=== PATIENT | female | born 1955 | race Two or more races ===

== ENCOUNTER 2018-09-17 22:03 | Emergency (ER) | payer BC ==
[~2018-09-17] VITALS: Ht 165.1 cm; Wt 69.4 kg
[2018-09-17] MEDS ORDERED: NKM (22:16)
--- NOTE | 2018-09-17 22:29 | NUR ---
ED Nurse Note: pt walked in c/o chest pain started today during dinner radiating to left arm, pt states it feels like electricity running through her arm. pt states she recently had stroke 6 wks ago but didn't go to hospital and had heart attack last year. pt AA&ox4, gcs=15, skin warm and dry, resp even and unlabored on RA, -n/v/d, ambulates w/ steady gait, NSR on manager balance, VSS. will cont monitor. ERMD at the bedside.
[2018-09-17 22:34] VITALS: BP 123/63
[2018-09-17 23:13] LABS: BASOPHILS % (AUTO) 0.8 % (0.0-2.0); EOSINOPHILS % (AUTO) 1.5 % (0.0-3.0); HEMATOCRIT 38.2 % (37.0-47.0); HEMOGLOBIN 13.3 G/DL (12.0-16.0); LYMPHOCYTES % (AUTO) 24.6 % (20.0-45.0); MEAN CORPUSCULAR VOLUME 91 FL (80-99); MONOCYTES % (AUTO) 8.2 % (1.0-10.0); PLATELET COUNT 215 K/UL (150-450); RED BLOOD COUNT 4.21 M/UL (4.20-5.40); RED CELL DISTRIBUTION WIDTH 11.2 % (11.6-14.8); WHITE BLOOD COUNT 5.9 K/UL (4.8-10.8)
[2018-09-17 23:35] LABS: ANION GAP 10 mmol/L (5-15); BLOOD UREA NITROGEN 10 mg/dL (7-18); CALCIUM 9.3 MG/DL (8.5-10.1); CARBON DIOXIDE 28 MMOL/L (21-32); CHLORIDE 108 MMOL/L (98-107); CREATININE 0.8 MG/DL (0.55-1.30); POTASSIUM 3.4 MMOL/L (3.5-5.1); SODIUM 146 MMOL/L (136-145)
[2018-09-17 23:48] LABS: ALANINE AMINOTRANSFERASE 41 U/L (12-78); ALBUMIN 3.9 G/DL (3.4-5.0); ALBUMIN/GLOBULIN RATIO 1.3 (1.0-2.7); ALKALINE PHOSPHATASE 115 U/L (46-116); ASPARTATE AMINO TRANSFERASE 25 U/L (15-37); BILIRUBIN,TOTAL 0.4 MG/DL (0.2-1.0); CKMB 0.8 NG/ML (0.0-3.6); CREATINE KINASE 75 U/L (26-308)
--- NOTE | 2018-09-18 00:01 | NUR ---
ED Nurse Note: pt states she wants to AMA, ERMD notified, pt advised possible complications and risks of AMA by ERMD, pt verbalized understanding and agrees with plan, pt advised to return to ed if sx worsen or new sx develop, pt advised to follow up with pcp, pt iv d/c and wristband removed, pt verbalized understanding and agrees with plan, AMA form signed, vss, pt was accompanied by friend, sinus frankie on cafeteria monitor. pt left w/ all belongings.
[2018-09-18 00:03] VITALS: BP 107/68
--- NOTE | 2018-09-18 00:46 | Emergency Room Report ---
History of Present Illness General Chief Complaint: Chest Pain Source: Patient Present Illness HPI 63-year-old female presents ED for evaluation. Walked in complaining of chest pain. Started a few hours ago at dinner. Sudden onset, sharp, 5 out of 10, nonradiating. Last for a few seconds then resolved. Denies any chest pain at this time. States that 6 weeks ago she had a syncopal episode and went to the hospital and found at that she had an VA. Patient states that she is currently not on any medications. 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 Denies smoking or drug use. No other aggravating relieving factors. Denies any other associated symptoms Allergies: Coded Allergies: AMOXICILLIN (Verified Allergy, Unknown, 09/17/18) Uncoded Allergies: ANESTHETICS (Allergy, Unknown, 09/17/18) CODEINES (Allergy, Unknown, 09/17/18) MYCINS (Allergy, Unknown, 09/17/18) PENICILLIN (Allergy, Unknown, 09/17/18) Patient History Past Medical History: VA Past Surgical History: none Pertinent Family History: none Social History: Denies: smoking, alcohol use, drug use Last Menstrual Period: menopause Now: No Immunizations: UTD Reviewed Nursing Documentation: PMH: Agreed; PSxH: Agreed Nursing Documentation-PMH Hx Cardiac Problems: Yes - myocardia schemia jun 2018, myocardial infarction 2017 Review of Systems All Other Systems: negative except mentioned in HPI Physical Exam Vital Signs Date Time Temp Pulse Resp B/P (MAP) Pulse Ox O2 Delivery O2 Flow Rate FiO2 09/17/18 22:12 98.1 64 16 118/54 97 Room Air Sp02 EP Interpretation: reviewed, normal General Appearance: no apparent distress, alert, GCS 15, non-toxic Head: normocephalic, atraumatic Eyes: bilateral eye normal inspection, bilateral eye PERRL ENT: hearing grossly normal, normal pharynx, no angioedema, normal voice Neck: full range of motion, supple/symm/no masses Respiratory: chest non-tender, lungs clear, normal breath sounds, speaking full sentences Cardiovascular #1: regular rate, rhythm, no edema Cardiovascular #2: 2+ carotid (R), 2+ carotid (L), 2+ radial (R), 2+ radial (L) , 2+ dorsalis pedis (R), 2+ dorsalis pedis (L) Gastrointestinal: normal bowel sounds, non tender, soft, non-distended, no guarding, no rebound Rectal: deferred Genitourinary: normal inspection, no CVA tenderness Musculoskeletal: back normal, gait/station normal, normal range of motion, non- tender Neurologic: alert, oriented x3, responsive, motor strength/tone normal, sensory intact, speech normal Psychiatric: judgement/insight normal, memory normal, mood/affect normal, no suicidal/homicidal ideation Reflexes: 3+ bicep (R), 3+ bicep (L), 3+ tricep (R), 3+ tricep (L), 3+ knee (R) , 3+ knee (L) Skin: normal color, no rash, warm/dry, well hydrated Lymphatic: no adenopathy Medical Decision Making Diagnostic Impression: Primary Impression: Chest pain Qualified Codes: R07.9 - Chest pain, unspecified ER Course Hospital Course 63 yo F presents to ED c/o chest pain Differential diagnoses include: VA/unstable angina, contusion, muscle strain, PTX, rib fracture Clinical course Patient placed on stretcher. on in home aide. After initial history and physical I ordered labs, EKG patient declined CXR labs reviewed- no leukocytosis, hb/hct stable, trop negative EKG - NSR no acute ischemic changes interpreted by me Discussed findings with patient. She showed me her old EKGs from recent hospitalization. EKG appears unchanged. However given recent presentation I believe patient should be admitted. Patient states she wants to be seen at her cardiology appointment tomorrow morning at [facility] Understands the risks of leaving. Patient has competency to make her own decisions. Signed AMA form. Patient given copies of her labs and EKG I. I feel this is a highly complex case requiring extensive working including EKG/Rhythm strip, Xray/CT/US, Blood/urine lab work, repeat exams while in ED, and administration of strong opiates/narcotics for pain control, admission to hospital or close patient follow up. Diagnosis - chest pain patient left AMA Labs Test 09/17/18 23:00 White Blood Count 5.9 K/UL (4.8-10.8) Red Blood Count 4.21 M/UL (4.20-5.40) Hemoglobin 13.3 G/DL (12.0-16.0) Hematocrit 38.2 % (37.0-47.0) Mean Corpuscular Volume 91 FL (80-99) Mean Corpuscular Hemoglobin 31.6 PG (27.0-31.0) Mean Corpuscular Hemoglobin Concent 34.9 G/DL (32.0-36.0) Red Cell Distribution Width 11.2 % (11.6-14.8) Platelet Count 215 K/UL (150-450) Mean Platelet Volume 7.9 FL (6.5-10.1) Neutrophils (%) (Auto) 65.0 % (45.0-75.0) Lymphocytes (%) (Auto) 24.6 % (20.0-45.0) Monocytes (%) (Auto) 8.2 % (1.0-10.0) Eosinophils (%) (Auto) 1.5 % (0.0-3.0) Basophils (%) (Auto) 0.8 % (0.0-2.0) Sodium Level 146 MMOL/L (136-145) Potassium Level 3.4 MMOL/L (3.5-5.1) Chloride Level 108 MMOL/L (98-107) Carbon Dioxide Level 28 MMOL/L (21-32) Anion Gap 10 mmol/L (5-15) Blood Urea Nitrogen 10 mg/dL (7-18) Creatinine 0.8 MG/DL (0.55-1.30) Estimat Glomerular Filtration Rate > 60 mL/min (>60) Glucose Level 118 MG/DL (74-106) Calcium Level 9.3 MG/DL (8.5-10.1) Total Bilirubin 0.4 MG/DL (0.2-1.0) Aspartate Amino Transf (AST/SGOT) 25 U/L (15-37) Alanine Aminotransferase (ALT/SGPT) 41 U/L (12-78) Alkaline Phosphatase 115 U/L (46-116) Total Creatine Kinase 75 U/L (26-308) Creatine Kinase MB 0.8 NG/ML (0.0-3.6) Creatine Kinase MB Relative Index 1.0 Troponin I 0.002 ng/mL (0.000-0.056) Pro-B-Type Natriuretic Peptide 53 pg/mL (0-125) Total Protein 6.9 G/DL (6.4-8.2) Albumin 3.9 G/DL (3.4-5.0) Globulin 3.0 g/dL Albumin/Globulin Ratio 1.3 (1.0-2.7) EKG Diagnostic Results Rate: normal Rhythm: NSR ST Segments: no acute changes ASA given to the pt in ED: No Rhythm Strip Diag. Results EP Interpretation: yes Rhythm: NSR, no PVC's, no ectopy Last Vital Signs Date Time Temp Pulse Resp B/P (MAP) Pulse Ox O2 Delivery O2 Flow Rate FiO2 09/18/18 00:03 98.1 56 16 107/68 98 Room Air Status: unchanged Disposition: AGAINST MEDICAL ADVICE Condition: Stable Referrals: NON PHYSICIAN (PCP) Patient Instructions: Nonspecific Chest Pain Sebastian Griffin MD Sep 18, 2018 00:46
--- NOTE | 2018-09-19 21:28 | Cardiology Report ---
APPROVED REPORT EKG Measurement Heart [id number] 134P [id number] Sinus bradycardia Left posterior fascicular block Cannot rule out Anterior infarct, age undetermined Abnormal ECG
== END 2018-09-18 00:04 | disposition left against medical advice (07) ==
LOC: EMR 22:50
DX: R07.9 Chest pain, unspecified (principal); I25.2 Old myocardial infarction; Z88.0 Allergy status to penicillin; Z88.5 Allergy status to narcotic agent
CPT/HCPCS: 36415; 80053; 82550; 82553; 83880; 84484; 85025; 93005; 99283